=== PATIENT | male | born 1965 ===

== ENCOUNTER 2019-08-12 17:33 | Inpatient (IN) | payer OTHER ==
[~2019-08-12 17:33] MED LIST: Iopamidol-370 76% 500 ML 1 ML ONE
[2019-08-12] MEDS ORDERED: Piperacillin/Tazobactam 4.5 GM VIAL ONE (19:32)
[2019-08-12] MEDS ORDERED: Morphine 4 MG/ML VIAL ONE ×2 (19:32→22:23)
[2019-08-12 19:46] LABS: Hemoglobin 11.9 g/dL (14.0-18.0); Mean Corpuscular HGB CONC 34.1 g/dL (32.0-36.0); Mean Corpuscular Hemoglobin 30.1 pg (27.0-31.0); Mean Corpuscular Volume 88.4 fL (78.0-98.0); Mean Platelet Volume 6.8 fL (7.4-10.4); Platelet Count 249 thou/uL (130-400); RBC Distribution Width 12.6 % (11.5-14.5); Red Blood Cell (RBC) Count 3.95 mill/uL (4.70-6.10); White Blood Cell (WBC) Count 15.8 thou/uL (4.8-10.8)
[2019-08-12 20:01] LABS: Band 21 % (5-11); Lymphocytes 4 % (21-51); MDiff Complete? YES; Monocytes 6 % (0-10); Neutrophil 67 % (42-75); Platelet Morphology Comment Appears Adequate; Polychromasia SLIGHT = 2-3 cells (100X) (0-2/hpf); Reactive Lymphocytes 2 % (0-10)
[2019-08-12] MEDS ORDERED: Acetaminophen 500 MG TAB ONE (20:01)
[2019-08-12 20:06] LABS: ALT (SGPT) 28 U/L (8-55); AST (SGOT) 50 U/L (5-34); Albumin 4.1 g/dL (3.5-5.0); Alkaline Phosphatase 69 U/L (40-110); Anion Gap 14 mmol/L (10-20); BUN (Urea Nitrogen) 13 mg/dL (8.4-25.7); Bilirubin, Total 0.6 mg/dL (0.2-1.2); Calc. Creatinine Clearance 0 mL/min (70-130); Calcium 9.5 mg/dL (7.8-10.44); Carbon Dioxide 25 mmol/L (22-29); Chloride 102 mmol/L (98-107); Estimated GFR-MDRD 85; Globulin 3.1 g/dL (2.4-3.5); Glucose 97 mg/dL (70-105); Potassium 3.9 mmol/L (3.5-5.1); Protein, Total 7.2 g/dL (6.0-8.3); Sodium 137 mmol/L (136-145)
[2019-08-12] MEDS ORDERED: Ibuprofen 800 MG TAB ONE (20:47)
--- NOTE | 2019-08-12 21:31 | CT ---
CT pelvis with IV contrast HISTORY: Scrotal pain and swelling. FINDINGS: Urinary bladder is unremarkable. Prominent degenerative changes of the lower lumbar spine. Minimal if any fluid within the scrotum. Significant edema and thickening of the scrotal scan, more o n the left than the right. Within the posterior aspect of the left scrotal base, a 0.4 cm gas pocket is surrounded by fluid density. IMPRESSION: Prominent scrotal skin thickening with small abscess at the posterior aspect of the left side of the scrotum within the skin. No significant internal abnormalities are suspected.
[2019-08-12 21:59] LABS: Bilirubin Negative (Negative); Blood, Urine Negative (Negative); Clarity Clear (Clear); Glucose, Urine (Dipstick) Normal (Negative); Leukocyte Negative Leu/uL (Negative); Nitrite Negative (Negative); Protein, Urine (Dipstick) 20 mg/dL (Neg-Trace); Urobilinogen Normal mg/dL (Less than 2)
[2019-08-12] MEDS ORDERED: Sodium Chloride 0.9% 1,000 ML IV SCH (23:12)
[2019-08-12] MEDS ORDERED: Ondansetron ODT 4 MG TAB SL PRN (23:12)
[2019-08-12] MEDS ORDERED: Ondansetron PF 4 MG/2 ML Vial IVP PRN ×2 (23:12→23:58)
[2019-08-12] MEDS ORDERED: Morphine 4 MG/ML VIAL SLOW IVP PRN (23:13)
[2019-08-12 23:54] VITALS: BMI 28.8
[2019-08-12] MEDS ORDERED: HumaLOG 300 UNITS/3 ML VIAL SC PRN ×2 (23:58)
[2019-08-12] MEDS ORDERED: Dextrose 50% Abboject 50 ML SYRINGE SLOW IVP PRN (23:58)
[2019-08-12] MEDS ORDERED: Senokot S 8.6-50 MG TAB PO PRN (23:58)
[2019-08-12] MEDS ORDERED: Bisacodyl 10 MG SUPP PR PRN (23:58)
[2019-08-12] MEDS ORDERED: Acetaminophen 325 MG TAB PO PRN (23:58)
[2019-08-12] MEDS ORDERED: Calcium Carbonate 500 MG ChewTAB PO PRN (23:58)
[2019-08-12] MEDS ORDERED: Dextrose 5% in Water 1,000 ML IV PRN (23:58)
[2019-08-12] MEDS ORDERED: Guaifenesin DM 100-10/5 ML UDCUP PO PRN (23:58)
--- NOTE | 2019-08-13 00:21 | HP ---
REASON FOR ADMISSION: Scrotal abscess with cellulitis. HISTORY OF PRESENTING ILLNESS: The patient gives history of noticing a lump on the left side of his scrotum on Thursday. On Thursday and Thursday, it got harder and bigger. He says it was the size of 2 to 3 grapes. From yesterday, it started to swell up and started to hurt him. Finally, [facility] He has been in the nursing home for last 2 years. No prior similar history. He has had prior history of staph infection in his right leg. This was more than 10 years back. Had a temperature of 100.3 degrees in the ER. PAST MEDICAL AND SURGICAL HISTORY: Hypertension, dyslipidemia, diabetes mellitus type 2, atopic dermatitis, GERD, staph infection in the right leg with prior surgery, tonsillectomy. CURRENT MEDICATIONS: The patient is on: 1. Lisinopril 5 mg daily. 2. Metformin 1000 mg twice daily. 3. Aspirin 81 mg daily. ALLERGIES: NO KNOWN DRUG ALLERGIES. PERSONAL HISTORY: Does not abuse alcohol or drugs. No history of smoking. He is currently in nursing home. FAMILY HISTORY: No history of early premature cardiac disease. REVIEW OF SYSTEMS: CONSTITUTIONAL: Negative for weight loss or gain, ability to conduct usual activities. SKIN: Negative for rash, itching. EYES: Negative for double vision, pain. ENT/MOUTH: Negative for nose bleeding, neck stiffness, pain, tenderness. CARDIOVASCULAR: Negative for palpitations, dyspnea on exertion, orthopnea. RESPIRATORY: Negative for shortness of breath, wheezing, cough, hemoptysis, fever or night sweats. GASTROINTESTINAL: Negative for poor appetite, abdominal pain, heartburn, nausea , vomiting, constipation, or diarrhea. GENITOURINARY: Negative for urgency, frequency, dysuria, nocturia. MUSCULOSKELETAL: Negative for pain, swelling. NEUROLOGIC/PSYCHIATRIC: Negative for anxiety, depression. ALLERGY/IMMUNOLOGIC: Negative for skin rash, bleeding tendency. CODE STATUS: Full. PHYSICAL EXAMINATION: GENERAL: The patient is a 53-year-old male, who is currently not in any acute distress. VITAL SIGNS: Blood pressure 160/84, pulse 100 per minute, respiratory rate 16 per minute, temperature 100.3 degrees Fahrenheit, saturating 99% on room air. NECK: Supple. No elevated JVD. HEENT: Eyes; extraocular muscles intact. Pupils reacting to light. Oral cavity, mucous membranes are moist. No exudates or congestion. CARDIOVASCULAR SYSTEM: S1 and S2 heard. Regular rhythm. RESPIRATORY SYSTEM: Air entry 1+ bilateral. No rales or rhonchi. ABDOMEN: Soft. Bowel sounds heard. No tenderness, rigidity, or guarding. SCROTUM: The patient has indurated abscess on the left at the base of his scrotum. There is edema, erythema, and seropurulent discharge. EXTREMITIES: No peripheral edema or calf tenderness. VASCULAR SYSTEM: Peripheral pulses 2+ bilateral. No ischemic ulcerations or gangrene. CENTRAL NERVOUS SYSTEM: No gross focal deficits noted. The patient is alert, awake, and oriented well. PSYCHIATRIC: The patient's mood is euthymic. No hallucinations or delusions. LABORATORY DATA: CT pelvis with contrast done showed prominent scrotal skin thickening with small abscess at the posterior aspect of the left side of the scrotum within the skin. No significant internal abnormalities were suspected. UA shows no sign of infection. BUN 13, creatinine 0.9, lactic acid 2.4, AST 50, ALT 28, albumin 4.1. White count of 15, H and H are 11 and 34, platelet count 249 with 67% neutrophils and 21% bands. Serum glucose was 97. CLINICAL IMPRESSION AND PLAN: The patient will be admitted to medical floor for scrotal abscess on the left side with cellulitis. Dr. Gonzales has been consulted from ER. We will keep him n.p.o. if he needs debridement in the morning. He will be on vancomycin and Zosyn. Normal saline at 100 mL per hour. Morphine p.r.n. for pain. We will continue his lisinopril 5 mg daily. Metformin will be held for now. We will continue to closely monitor him on medical floor. Job ID: [id number] [facility]
[2019-08-13] MEDS: Sodium Chloride 0.9% 1,000 ML IV SCH ×3 (01:05→22:05)
[2019-08-13] MEDS ORDERED: Piperacillin/Tazobactam 4.5 GM in Sodium Chloride 0.9% 100 ML IVPB SCH (02:00)
[2019-08-13] MEDS: Piperacillin/Tazobactam 3.375 GM in Sodium Chloride 0.9% 100 ML IVPB SCH ×4 (02:20→19:50)
[2019-08-13] MEDS: Morphine 4 MG/ML VIAL SLOW IVP PRN ×4 (02:23→23:27)
[2019-08-13] MEDS: Vancomycin HCl 1.25 GM in Sodium Chloride 0.9% 250 ML 250 ML IVPB SCH ×3 (04:25→22:02)
[2019-08-13 06:51] LABS: #Eosinphils 0.1 thou/uL (0.0-0.7); #Lymphocytes 0.7 thou/uL (1.20-3.40); #Monocytes 0.7 thou/uL (0.11-0.59); #Neutrophils 9.9 thou/uL (1.40-6.50); %Basophils 0.1 % (0.0-1.0); %Eosinophils 1.2 % (0.0-10.0); %Lymphocytes 6.3 % (21.0-51.0); %Monocytes 5.9 % (0.0-10.0); %Neutrophils 86.4 % (42.0-75.0); Hemoglobin 11.1 g/dL (14.0-18.0); Mean Corpuscular HGB CONC 33.9 g/dL (32.0-36.0); Mean Corpuscular Volume 88.6 fL (78.0-98.0); Mean Platelet Volume 6.7 fL (7.4-10.4); Platelet Count 238 thou/uL (130-400); RBC Distribution Width 12.8 % (11.5-14.5); Red Blood Cell (RBC) Count 3.71 mill/uL (4.70-6.10); White Blood Cell (WBC) Count 11.4 thou/uL (4.8-10.8)
[2019-08-13 07:20] LABS: Anion Gap 10 mmol/L (10-20); BUN (Urea Nitrogen) 13 mg/dL (8.4-25.7); Calc. Creatinine Clearance 127 mL/min (70-130); Calcium 8.7 mg/dL (7.8-10.44); Carbon Dioxide 26 mmol/L (22-29); Chloride 108 mmol/L (98-107); Estimated GFR-MDRD 83; Glucose 161 mg/dL (70-105); Potassium 4.1 mmol/L (3.5-5.1); Sodium 140 mmol/L (136-145)
[2019-08-13] MEDS: Famotidine 20 MG TAB PO SCH ×2 (08:11→19:50)
[2019-08-13] MEDS: Lisinopril 5 MG TAB PO SCH (08:11)
[2019-08-13] MEDS: Enoxaparin Sodium 40 MG/0.4 ML SYRINGE SC SCH ×2 (08:12→08:21)
--- NOTE | 2019-08-13 13:40 | CON ---
DATE OF CONSULTATION: 08/13/2019 CONSULTING PHYSICIAN: Emergency room. REASON FOR CONSULTATION: Scrotal abscess and cellulitis. HISTORY OF PRESENT ILLNESS: Mr. Mosher is a 53-year-old white male who is currently incarcerated and has a history of diabetes, who came in with a several-day history of a worsening boil on his posterior scrotum. He stated that it started out as what looked like a pimple and then progressively got worse to the point he started having swelling and significant pain and tenderness, swelling not just on the scrotum, but behind the scrotum itself. He did not report any pain with urination, hematuria, difficulty urinating, or malodorous urine. When he began having fevers, he was treated initially by the skilled nursing facility with antibiotics, but failed to respond and transferred over to the emergency room where he was evaluated. Here, the emergency room team felt that he may have a possible posterior scrotal abscess and did lucita an area that appeared to be pustular. There was a very small and scant amount of fluid drained out at that time and it did not appear that there was any tracking or significant fluid collection from the small incision that was made on his posterior scrotum to perineal area. I was consulted then for further assistance on his perineum and scrotal infection. I did request a pelvic CT be done, which was completed and demonstrated no significant intrapelvic abscess, perineal abscess, or subcutaneous emphysema. On my discussion with the patient today, he states he is feeling better on the antibiotics. He has less malaise and apparently his fevers have stopped. He is still having a lot of pain and discomfort down in the perineal and scrotal area, although it is improved from yesterday. He states he has never had anything like this before, although he does state that several other inmates have had similar-type infections, not to the severity that he has had, that had also failed oral antibiotic therapy in the skilled nursing system. Of note, the patient's blood sugar levels were 97 when he came into the ER yesterday. ALLERGIES: NONE. HOME MEDICATIONS: 1. Lisinopril 5 mg daily. 2. Metformin 1000 mg b.i.d. 3. Aspirin 81 mg daily. PAST MEDICAL HISTORY: 1. Hypertension. 2. Dyslipidemia. 3. Diabetes mellitus, type 2. 4. Atopic dermatitis. 5. Gastroesophageal reflux disease. 6. History of staph infection in the right leg with prior surgery. 7. Tonsillectomy. PAST SURGICAL HISTORY: Right leg debridement. FAMILY HISTORY: Significant only for cardiac disease, but no other concerning urologic findings. SOCIAL HISTORY: The patient is currently incarcerated. He states he is not using any alcohol or drugs and has no history of smoking. REVIEW OF SYSTEMS: A 12-point review of system was reviewed and negative other than what was commented on the HPI, specifically related to his prior malaise, fevers, and scrotal and perineal pain which as stated above has now improved. PHYSICAL EXAMINATION: VITAL SIGNS: Temperature 98.1, pulse 70, respirations 18, blood pressure 124/72, and saturations 97% on room air. GENERAL: No apparent distress. Appears stated age. Communicative and alert. Well nourished, well developed. Answering questions appropriately. HEENT: Normocephalic and atraumatic. Pupils are symmetric and round. Sclerae nonicteric. Trachea midline. Moist mucous membranes. CARDIOVASCULAR: Regular rate and rhythm. Normal S1 and S2. Symmetric pulses. CHEST: No increased work of breathing. Symmetric expansion of lungs. Clear anteriorly. ABDOMEN: Soft, nontender, and nondistended. Positive bowel sounds. No organomegaly or hernias noted. No rebound or guarding. GENITOURINARY: Penis is nonfocal. There is no redness or erythema or induration. Nontender. Meatus is patent and in normal location. Scrotum is erythematous and somewhat edematous. The posterior scrotum does have induration, but no crepitus. The testicles are palpable in the scrotal sac and are nontender. There is significant induration of the skin on the left lateral aspect of the inguinal canal with associated mild lymphadenopathy in the left inguinal chain. The perineum is severely indurated and tender to touch, which tracks to the scrotum on the left side. There is a small incision, which has some purulent material and fibrinous material around it, which is probably consistent with the patient's prior I and D done in the emergency room. Palpation of this area does not demonstrate any crepitus or fluctuance. The tissues are hard, but do corine and have good capillary refill, indicating viability. RECTAL: Deferred at this time. EXTREMITIES: No clubbing, cyanosis, or edema. MUSCULOSKELETAL: No joint deformities or joint erythema noted. Full range of motion. SKIN: Warm and dry. No rashes or lesions. Good turgor except for previously noted skin changes in the genitourinary region. NEUROLOGIC: Cranial nerves 2 through 12 appear grossly intact. No focal or sensory motor deficits identified. PSYCHIATRIC: Alert and oriented x3. Appropriate mood and affect. LABORATORY EVALUATION: The full set of labs are in the [employer] system, which I have reviewed. Of note, the patient's white count is currently 11.4 down from 15.8, platelet count of 238, and hemoglobin of 11.1. Creatinine is currently 0.96 and glucose today is 161. Lactic acid has decreased from 2.4 down to 2. Blood cultures have been negative thus far and are proceeding. CT of the pelvis done yesterday demonstrates prominent scrotal thickening with small abscess at the posterior aspect of the left side of the scrotum within the skin. There is no significant internal abnormality suspected. The only gas pocket noted is in the location of the prior I and D, which was made by the emergency room team. ASSESSMENT AND PLAN: A 53-year-old white male with diabetes with fairly significant perineal cellulitis which has extended up onto the base of the scrotum as well as in the left inguinal region. There is currently no evidence of Wilbert gangrene as the tissues all appear viable. There are no significant gas pocket formations. The patient has a decreasing white count and decreasing lactate levels and clinical improvement. At the current time, there is no strong indication for extensive or wide debridement, which is extremely morbid. The patient should have further improvement with tight glycemic control and appropriate antibiotic therapy. Would recommend continuation of IV antibiotics at the current time until cultures can be finalized. If no cultures were taken during the I and D, then I would treat for MRSA staph type infection or double cover with Bactrim and some type of skin coverage, such as amoxicillin, Augmentin, or Keflex. I will continue to follow and I would recommend that he stay in the hospital until cultures are finalized. The patient has shown a moderate level of clinical improvement. I will continue to monitor to ensure that he does not have any progression towards Wilbert gangrene. The patient does not need to be kept n.p.o. and can use a diabetic diet, but blood sugar control be imperative for proper resolution of this infection. Job ID: [id number]
[2019-08-13] MEDS: HYDROcodone/Acetaminophen 5/325 mg Tablet PO PRN ×2 (13:56→17:53)
--- NOTE | 2019-08-13 18:06 | PDOC.HOSPP ---
- Subjective Encounter Date: 08/13/19 Encounter Time: 09:00 Subjective: Pt seen for followup re: scrotal cellulitis. Feels slightly better. - Objective Vital Signs & Weight: Vital Signs (12 hours) Temp Pulse Resp BP BP Pulse Ox 08/13/19 16:59 98.5 F 84 20 118/68 93 L 08/13/19 12:00 98.8 F 88 20 145/75 H 95 08/13/19 08:11 70 124/72 08/13/19 08:00 98.1 F 79 18 124/72 97 Weight Weight 218 lb 4.122 oz I&O: 08/12/19 08/13/19 08/14/19 06:59 06:59 06:59 Intake Total 1314 Output Total 0 Balance 1314 Result Diagrams: 08/13/19 06:31 08/13/19 06:31 Additional Labs: Accuchecks 08/13/19 08/13/19 08/13/19 16:29 11:58 05:52 POC Glucose 123 H 94 166 H Labs and MARs reviewed by nj Hospitalist ROS - Review of Systems Constitutional: denies: fever, chills, sweats, weakness, malaise Respiratory: denies: cough, shortness of breath, SOB with excertion, pleuritic pain, wheezing Cardiovascular: denies: chest pain, palpitations, orthopnea, paroxysmal noc. dyspnea, edema, light headedness Gastrointestinal: denies: nausea, vomiting, abdominal pain, diarrhea, constipation, melena, hematochezia Genitourinary: reports: other (scrotal pain and swelling). denies: dysuria, frequency, incontinence, hematuria, retention Musculoskeletal: denies: neck pain, shoulder pain, arm pain, back pain, hand pain, leg pain, foot pain - Medication Medications: Active Medications Generic Name Dose Route Start Last Admin Trade Name Freq PRN Reason Stop Dose Admin Hydrocodone Bitart/Acetaminophen 1 tab 08/12/19 23:58 08/13/19 17:53 [place] 5/325 PO 1 tab Q4H PRN Administration Moderate Pain (4-6) Enoxaparin Sodium 40 mg 08/13/19 09:00 08/13/19 08:21 Lovenox SC Not Given 0900 FAUSTO Famotidine 20 mg 08/13/19 09:00 08/13/19 08:11 Pepcid PO 20 mg BID FAUSTO Administration Sodium Chloride 1,000 mls @ 100 mls/hr 08/12/19 23:58 08/13/19 04:24 Normal Saline 0.9% IV 1,000 mls .Q10H FAUSTO Administration Piperacillin Sod/Tazobactam 100 mls @ 200 mls/hr 08/13/19 02:00 08/13/19 13: 53 Sod 3.375 gm/ Sodium Chloride IVPB 100 mls 0200,0800,1400,2000 FAUSTO Administration Vancomycin HCl 1.25 gm/ Sodium 250 mls @ 250 mls/hr 08/13/19 06:00 08/13/19 15:12 Chloride IVPB 250 mls Q8HR FAUSOT Administration Lisinopril 5 mg 08/13/19 09:00 08/13/19 08:11 Zestril PO 5 mg DAILY FAUSTO Administration Morphine Sulfate 4 mg 08/12/19 23:58 08/13/19 13:55 Morphine SLOW IVP 4 mg Q4H PRN Administration Severe Pain (7-10) Sodium Chloride 10 ml 08/13/19 09:00 08/13/19 08:12 Flush - Normal Saline IVF 10 ml Q12HR FAUSTO Administration - Exam General Appearance: awake alert Eye: anicteric sclera ENT: moist mucosa Neck: supple, symmetric, no thyromegaly, no lymphadenopathy Heart: RRR, no gallops, no rubs, normal peripheral pulses Respiratory: CTAB, no wheezes, no rales, no ronchi, normal chest expansion Gastrointestinal: soft, non-tender, non-distended, normal bowel sounds Skin - other findings: scrotal erythema, tenderness, warm to touch Psychiatric: normal affect, normal behavior Hosp A/P (1) Cellulitis of scrotum Code(s): N49.2 - INFLAMMATORY DISORDERS OF SCROTUM Status: Acute (2) Scrotal abscess Code(s): N49.2 - INFLAMMATORY DISORDERS OF SCROTUM Status: Acute (3) DM2 (diabetes mellitus, type 2) Status: Chronic (4) HTN (hypertension) Code(s): I10 - ESSENTIAL (PRIMARY) HYPERTENSION Status: Chronic (5) GERD (gastroesophageal reflux disease) Code(s): K21.9 - GASTRO-ESOPHAGEAL REFLUX DISEASE WITHOUT ESOPHAGITIS Status: Chronic - Plan reasonable control of blood sugars. Continue IV Zosyn and IV vancomycin. HTN controlled. GERD stable.
[2019-08-13 21:32] LABS: Vancomycin, Trough 16.9 ug/mL
[2019-08-14] MEDS: Piperacillin/Tazobactam 3.375 GM in Sodium Chloride 0.9% 100 ML IVPB SCH ×5 (02:06→20:46)
[2019-08-14] MEDS: Sodium Chloride 0.9% 1,000 ML IV SCH ×2 (02:14→20:48)
[2019-08-14] MEDS: Vancomycin HCl 1.25 GM in Sodium Chloride 0.9% 250 ML 250 ML IVPB SCH ×3 (07:54→21:53)
[2019-08-14] MEDS: Famotidine 20 MG TAB PO SCH ×2 (09:14→20:47)
[2019-08-14] MEDS: Lisinopril 5 MG TAB PO SCH (09:14)
[2019-08-14] MEDS: Enoxaparin Sodium 40 MG/0.4 ML SYRINGE SC SCH (09:15)
--- NOTE | 2019-08-14 11:54 | PRG ---
DATE OF SERVICE: 08/14/2019 SUBJECTIVE: The patient states he is feeling fine today. He is about in the same level of pain as yesterday, which is about 3/10. It is worse with movement. He has not had any fevers. OBJECTIVE: VITAL SIGNS: Temperature 98, pulse 73, respirations 16, blood pressure 160/84, saturation 96% on room air. GENERAL: In no apparent distress, communicative, alert. CARDIOVASCULAR: Regular rate and rhythm. ABDOMEN: Soft, nontender, nondistended. Positive bowel sounds. : Penis is nonfocal. No lesions or edema. Scrotum shows less erythema than yesterday. It is still edematous, especially on the posterior aspect. There is still induration of the tissues along the left side of the scrotum extending onto the perineum where the previously mentioned cellulitis is. The amount of erythema has dramatically reduced since yesterday, although the induration persists. There is still a purulent eschar present at the site of where the previous I and D was. Compression on this area does result in expression of purulent material. EXTREMITIES: No edema. LABORATORY EVALUATION: There are no new labs to review today other than blood sugar, which is currently 117. ASSESSMENT AND PLAN: A 53-year-old white male with perineal and scrotal cellulitis, currently on antibiotic therapy with a small I and D without any actual abscess cavity found. There is purulent material draining out from this eschar site. I would recommend topical wound care and I do think it would be ideal for Wound Care to come see the patient to address on whether a silver-coated dressing or honey-based dressing may be beneficial for topical treatment of this purulent discharge, but more importantly IV antibiotics will be critical for resolution of this infection. I would recommend continued IV antibiotics until the patient shows further clinical resolution. At that point, I do think he can transition to oral antibiotic therapy. At the current time, cultures still have not grown anything. Urine culture is currently negative, which is probably not going to show anything as I do not think this stemmed from a urinary infection. Again, if the patient has no cultures from the area of infection, then treatment with Bactrim and skin coverage such as Augmentin, amoxicillin, or Keflex would probably be beneficial for treatment of superficial skin bacteria and methicillin-resistant Staphylococcus aureus. I will continue to follow along and make recommendations. Job ID: [id number]
[2019-08-14 12:46] LABS: #Eosinphils 0.1 thou/uL (0.0-0.7); #Lymphocytes 1.2 thou/uL (1.20-3.40); #Monocytes 0.5 thou/uL (0.11-0.59); #Neutrophils 5.8 thou/uL (1.40-6.50); %Basophils 0.2 % (0.0-1.0); %Eosinophils 1.8 % (0.0-10.0); %Lymphocytes 15.6 % (21.0-51.0); %Monocytes 6.9 % (0.0-10.0); %Neutrophils 75.5 % (42.0-75.0); Hemoglobin 10.9 g/dL (14.0-18.0); Mean Corpuscular HGB CONC 34.1 g/dL (32.0-36.0); Mean Corpuscular Hemoglobin 30.5 pg (27.0-31.0); Mean Corpuscular Volume 89.4 fL (78.0-98.0); Mean Platelet Volume 6.4 fL (7.4-10.4); Platelet Count 274 thou/uL (130-400); RBC Distribution Width 12.7 % (11.5-14.5); Red Blood Cell (RBC) Count 3.59 mill/uL (4.70-6.10); White Blood Cell (WBC) Count 7.6 thou/uL (4.8-10.8)
--- NOTE | 2019-08-14 14:37 | PDOC.HOSPP ---
- Subjective Encounter Date: 08/14/19 Encounter Time: 08:20 Subjective: Pt seen for followup re: scrotal cellulitis. Feels better. - Objective Vital Signs & Weight: Vital Signs (12 hours) Temp Pulse Resp BP BP Pulse Ox 08/14/19 11:19 98.0 F 73 16 160/84 H 96 08/14/19 09:14 80 148/79 H 08/14/19 08:00 93 L 08/14/19 07:48 98.0 F 80 16 148/79 H 93 L 08/14/19 05:27 97.9 F 82 18 141/74 H 95 Weight Weight 218 lb 4.122 oz I&O: 08/13/19 08/14/19 08/15/19 06:59 06:59 06:59 Intake Total 1314 1780 Output Total 0 Balance 1314 1780 Result Diagrams: 08/14/19 12:36 08/13/19 06:31 Additional Labs: Accuchecks 08/14/19 08/14/19 08/13/19 11:25 05:26 21:51 POC Glucose 117 H 116 H 168 H 08/13/19 16:29 POC Glucose 123 H Labs and MARs reviewed by ia Hospitalist ROS - Review of Systems Constitutional: denies: fever, chills, sweats, weakness, malaise Cardiovascular: denies: chest pain, palpitations, orthopnea, paroxysmal noc. dyspnea, edema, light headedness Gastrointestinal: denies: nausea, vomiting, abdominal pain, diarrhea, constipation, melena, hematochezia Genitourinary: denies: dysuria, frequency, incontinence, hematuria, retention Musculoskeletal: denies: neck pain, shoulder pain, arm pain, back pain, hand pain, leg pain, foot pain - Medication Medications: Active Medications Generic Name Dose Route Start Last Admin Trade Name Freq PRN Reason Stop Dose Admin Hydrocodone Bitart/Acetaminophen 1 tab 08/12/19 23:58 08/13/19 17:53 [place] 5/325 PO 1 tab Q4H PRN Administration Moderate Pain (4-6) Enoxaparin Sodium 40 mg 08/13/19 09:00 08/14/19 09:15 Lovenox SC 40 mg 0900 FAUSTO Administration Famotidine 20 mg 08/13/19 09:00 08/14/19 09:14 Pepcid PO 20 mg BID FAUSTO Administration Sodium Chloride 1,000 mls @ 100 mls/hr 08/12/19 23:58 08/14/19 02:14 Normal Saline 0.9% IV 1,000 mls .Q10H AFUSTO Administration Vancomycin HCl 1.25 gm/ Sodium 250 mls @ 250 mls/hr 08/13/19 06:00 08/14/19 07:54 Chloride IVPB 250 mls Q8HR FAUSTO Administration Piperacillin Sod/Tazobactam 100 mls @ 200 mls/hr 08/14/19 10:00 08/14/19 10: 10 Sod 3.375 gm/ Sodium Chloride IVPB 100 mls 0400,1000,1600,2200 FAUSTO Administration Lisinopril 5 mg 08/13/19 09:00 08/14/19 09:14 Zestril PO 5 mg DAILY FAUSTO Administration Morphine Sulfate 4 mg 08/12/19 23:58 08/13/19 23:27 Morphine SLOW IVP 4 mg Q4H PRN Administration Severe Pain (7-10) Sodium Chloride 10 ml 08/13/19 09:00 08/14/19 14:30 Flush - Normal Saline IVF Not Given Q12HR FAUSTO - Exam General Appearance: awake alert Eye: PERRL ENT: moist mucosa Neck: supple, symmetric, no JVD, no thyromegaly Heart: RRR, no murmur, no gallops, no rubs Respiratory: CTAB, no wheezes, no rales, no ronchi, normal chest expansion Gastrointestinal: soft, non-tender, non-distended, normal bowel sounds Psychiatric: normal affect, normal behavior, A&O x 3 Hosp A/P (1) Cellulitis of scrotum Code(s): N49.2 - INFLAMMATORY DISORDERS OF SCROTUM Status: Acute (2) Scrotal abscess Code(s): N49.2 - INFLAMMATORY DISORDERS OF SCROTUM Status: Acute (3) DM2 (diabetes mellitus, type 2) Status: Chronic (4) HTN (hypertension) Code(s): I10 - ESSENTIAL (PRIMARY) HYPERTENSION Status: Chronic (5) GERD (gastroesophageal reflux disease) Code(s): K21.9 - GASTRO-ESOPHAGEAL REFLUX DISEASE WITHOUT ESOPHAGITIS Status: Chronic - Plan Continuie accuchecks and insulin sliding scale. Continue IV Zosyn and IV vancomycin, follow cultures. HTN controlled. GERD stable.
[2019-08-14] MEDS: HYDROcodone/Acetaminophen 5/325 mg Tablet PO PRN ×2 (15:03→20:47)
[2019-08-15] MEDS: Piperacillin/Tazobactam 3.375 GM in Sodium Chloride 0.9% 100 ML IVPB SCH ×3 (04:31→15:22)
[2019-08-15] MEDS: Sodium Chloride 0.9% 1,000 ML IV SCH ×3 (04:32→23:25)
[2019-08-15] MEDS: Vancomycin HCl 1.25 GM in Sodium Chloride 0.9% 250 ML 250 ML IVPB SCH ×3 (06:02→17:33)
[2019-08-15] MEDS: HYDROcodone/Acetaminophen 5/325 mg Tablet PO PRN ×4 (06:02→20:24)
[2019-08-15] MEDS: Enoxaparin Sodium 40 MG/0.4 ML SYRINGE SC SCH (11:11)
[2019-08-15] MEDS: Lisinopril 5 MG TAB PO SCH (11:15)
[2019-08-15] MEDS: Famotidine 20 MG TAB PO SCH ×2 (11:15→20:25)
--- NOTE | 2019-08-15 12:38 | PDOC.HOSPP ---
- Subjective Encounter Date: 08/15/19 Encounter Time: 08:20 Subjective: Pt seen for followup re:scrotal cellulitis. feels better. - Objective Vital Signs & Weight: Vital Signs (12 hours) Temp Pulse Resp BP Pulse Ox 08/15/19 11:15 75 08/15/19 11:05 98.0 F 62 16 176/85 H 96 08/15/19 07:55 98.1 F 63 16 152/84 H 96 08/15/19 03:25 98.2 F 75 16 164/86 H 92 L Weight Weight 218 lb 4.122 oz I&O: 08/14/19 08/15/19 08/16/19 06:59 06:59 06:59 Intake Total 1780 1650 Balance 1780 1650 Result Diagrams: 08/14/19 12:36 08/13/19 06:31 Additional Labs: Accuchecks 08/15/19 08/14/19 08/14/19 05:34 19:53 15:57 POC Glucose 108 157 H 185 H Labs and MARs reviewed by wi Hospitalist ROS - Review of Systems Cardiovascular: denies: chest pain, palpitations, orthopnea, paroxysmal noc. dyspnea, edema, light headedness Gastrointestinal: denies: nausea, vomiting, abdominal pain, diarrhea, constipation, melena, hematochezia - Medication Medications: Active Medications Generic Name Dose Route Start Last Admin Trade Name Freq PRN Reason Stop Dose Admin Hydrocodone Bitart/Acetaminophen 1 tab 08/12/19 23:58 08/15/19 11:15 [place] 5/325 PO 1 tab Q4H PRN Administration Moderate Pain (4-6) Enoxaparin Sodium 40 mg 08/13/19 09:00 08/15/19 11:11 Lovenox SC 40 mg 0900 FAUSTO Administration Famotidine 20 mg 08/13/19 09:00 08/15/19 11:15 Pepcid PO 20 mg BID FAUSTO Administration Sodium Chloride 1,000 mls @ 100 mls/hr 08/12/19 23:58 08/15/19 11:18 Normal Saline 0.9% IV 1,000 mls .Q10H FAUSTO Administration Vancomycin HCl 1.25 gm/ Sodium 250 mls @ 250 mls/hr 08/13/19 06:00 08/15/19 06:02 Chloride IVPB 250 mls Q8HR FAUSTO Administration Piperacillin Sod/Tazobactam 100 mls @ 200 mls/hr 08/14/19 10:00 08/15/19 11: 18 Sod 3.375 gm/ Sodium Chloride IVPB 100 mls 0400,1000,1600,2200 FAUSTO Administration Lisinopril 5 mg 08/13/19 09:00 08/15/19 11:15 Zestril PO 5 mg DAILY FAUSTO Administration Morphine Sulfate 4 mg 08/12/19 23:58 08/13/19 23:27 Morphine SLOW IVP 4 mg Q4H PRN Administration Severe Pain (7-10) Sodium Chloride 10 ml 08/13/19 09:00 08/15/19 11:18 Flush - Normal Saline IVF 10 ml Q12HR FAUSTO Administration - Exam General Appearance: awake alert Eye: anicteric sclera ENT: moist mucosa Neck: supple Heart: RRR, no rubs Respiratory: CTAB Gastrointestinal: soft, non-tender Gastrointestinal - other findings: scrotal cellulitis Psychiatric: normal affect, normal behavior Hosp A/P (1) Cellulitis of scrotum Code(s): N49.2 - INFLAMMATORY DISORDERS OF SCROTUM Status: Acute (2) DM2 (diabetes mellitus, type 2) Status: Chronic (3) HTN (hypertension) Code(s): I10 - ESSENTIAL (PRIMARY) HYPERTENSION Status: Chronic (4) GERD (gastroesophageal reflux disease) Code(s): K21.9 - GASTRO-ESOPHAGEAL REFLUX DISEASE WITHOUT ESOPHAGITIS Status: Chronic - Plan Continuie accuchecks and insulin moderate sliding scale. Blood sugars high at times but most of the readings are reasonable. Continue IV Zosyn and IV vancomycin, cultures negative so far. HTN controlled. GERD stable.
[2019-08-15 13:42] LABS: Vancomycin, Trough 20.5 ug/mL
[2019-08-15] MEDS ORDERED: Vancomycin HCl 1 GM in Premix Bag 1 BAG IVPB SCH ×2 (16:00→22:15)
--- NOTE | 2019-08-15 20:05 | PRG ---
DATE OF SERVICE: 08/15/2019 SUBJECTIVE: The patient states he is feeling better today. He has 4/10 pain. It is improving overall. He is still sensitive with swelling and induration, but otherwise states he is doing well. Wound Care did come see him today and has applied honey based dressing. The patient has also taken a shower. He denies any fevers. OBJECTIVE: VITAL SIGNS: Temperature 98.5, pulse 67, respirations 18, blood pressure 169/92, saturation 96% on room air. GENERAL: No apparent distress. Communicative and alert. CARDIOVASCULAR: Regular rate and rhythm. ABDOMEN: Soft, nontender, and nondistended. GENITOURINARY: The patient still has mild edema of the scrotum with mild erythema. The induration on the left inguinal and perineal area has significantly decreased, but continues to be present. There is still a purulent eschar at the site of the previous I and D. No crepitus or evidence of Wilbert gangrene. No subcutaneous fluctuance or evidence of abscess. Overall, clinically looks better than before. EXTREMITIES: No edema. LABORATORY EVALUATION: The full set of labs are in the [employer] system, which I have reviewed. Of note, the patient's white count is 7.6 as of yesterday. There are no new labs today. ASSESSMENT AND PLAN: A 53-year-old white male with perineal and scrotal cellulitis, which has significantly improved on IV antibiotics. I would consider making the transition over to oral antibiotics including coverage for both methicillin-resistant Staphylococcus aureus and methicillin-sensitive Staphylococcus aureus and strep such as a combination of Bactrim with Keflex. Antibiotic treatment should be continued for 2 weeks given the severity of the infection and the patient's diabetes. I gave the patient the option to follow up with me as an outpatient or he can be followed by the halfway physician who can check on his infection and ensure that it is healing appropriately. The patient has elected to have the halfway doctor follow it, which I think is reasonable. Should there be any worsening of his infection, recurrent fevers, worsening pain, redness or swelling, the patient should be transferred back to the hospital for more aggressive treatment, IV antibiotics with or without surgical debridement. I will go ahead and sign off for now. If there are any further concerns, I think the patient can be discharged tomorrow. Please re-consult or call if there are any questions. Job ID: [id number]
[2019-08-15] MEDS ORDERED: Sulfameth/Trimethoprim DS 800-160mg TAB PO SCH (21:00)
[2019-08-15] MEDS ORDERED: Amoxicillin/Potassium Clav 875 MG TAB PO SCH (21:00)
[2019-08-15] MEDS ORDERED: diphenhydrAMINE 50 MG/ML VIAL ONE ×2 (21:49→21:58)
[2019-08-15] MEDS ORDERED: methylPREDNISolone Sod Succ/PF 125 MG/2 ML VIAL IVP SCH (22:00)
[2019-08-15] MEDS ORDERED: diphenhydrAMINE 50 MG/ML VIAL IM SCH (22:00)
[2019-08-15] MEDS ORDERED: Piperacillin/Tazobactam 3.375 GM in Sodium Chloride 0.9% 100 ML IVPB SCH (22:00)
[2019-08-15] MEDS ORDERED: Famotidine/PF 20 mg/2ml Vial SLOW IVP SCH (22:00)
[2019-08-15] MEDS ORDERED: Racepinephrine 2.25% 0.5 ML NEB ONE (22:01)
[2019-08-15] MEDS ORDERED: Bacteriostatic Water 30 ML VIAL FS PRN (22:04)
--- NOTE | 2019-08-15 22:05 | PDOC.EVN ---
Event Note - Event Note Event Note: Code green called - Pt hypoxic in 70s. Feels like his throat is closing. o/e Rep distress, Mild stridor, Coarse BS B/L Labs/CXR pending Will start IV Pepcid/Benadryl/Steroids for posiblle allergic reaction to Augmentin or Sulfa (both are new - first dose tonight) Transfer to [facility] Change Atbx back to IV
[2019-08-15] MEDS ORDERED: Furosemide 40 MG/4 ML VIAL SLOW IVP SCH (22:15)
--- NOTE | 2019-08-15 22:23 | RAD ---
Portable frontal chest radiograph: 08/15/2019 COMPARISON: None available HISTORY: Short of breath FINDINGS: No focal consolidation or alveolar edema. Heart and mediastinal contours appear within norm al limits. Mild increased linear interstitial density noted bilaterally. IMPRESSION: Nonspecific mild interstitial density with no focal consolidation or alveolar edema.
[2019-08-15 22:35] LABS: ALT (SGPT) 28 U/L (8-55); AST (SGOT) 46 U/L (5-34); Albumin 4.1 g/dL (3.5-5.0); Alkaline Phosphatase 164 U/L (40-110); Anion Gap 19 mmol/L (10-20); BUN (Urea Nitrogen) 9 mg/dL (8.4-25.7); Bilirubin, Total 0.3 mg/dL (0.2-1.2); Calc. Creatinine Clearance 119 mL/min (70-130); Calcium 9.5 mg/dL (7.8-10.44); Carbon Dioxide 20 mmol/L (22-29); Chloride 106 mmol/L (98-107); Estimated GFR-MDRD 76; Globulin 3.7 g/dL (2.4-3.5); Glucose 138 mg/dL (70-105); Potassium 3.8 mmol/L (3.5-5.1); Protein, Total 7.8 g/dL (6.0-8.3); Sodium 141 mmol/L (136-145)
[2019-08-15 22:39] LABS: Troponin I 0.025 ng/mL (< 0.028)
[2019-08-15] MEDS ORDERED: MEROPENEM 1 GM/50 ML 1 GM in Premix Bag 1 BAG IVPB SCH (22:45)
[2019-08-15] MEDS: Vancomycin HCl 1 GM in Premix Bag 1 BAG IVPB SCH (23:48)
[2019-08-15] MEDS ORDERED: diphenhydrAMINE 50 MG/ML VIAL IVP SCH (23:59)
[2019-08-16] MEDS ORDERED: methylPREDNISolone Sod Succ 40 MG VIAL IVP SCH (02:00)
[2019-08-16] MEDS: diphenhydrAMINE 50 MG/ML VIAL IVP SCH ×4 (03:34→20:24)
[2019-08-16] MEDS: methylPREDNISolone Sod Succ 40 MG VIAL IVP SCH ×4 (03:35→20:24)
[2019-08-16] MEDS: MEROPENEM 1 GM/50 ML 1 GM in Premix Bag 1 BAG IVPB SCH ×3 (06:29→21:20)
[2019-08-16] MEDS: Enoxaparin Sodium 40 MG/0.4 ML SYRINGE SC SCH (10:04)
[2019-08-16] MEDS: Famotidine 20 MG TAB PO SCH ×2 (10:04→20:24)
[2019-08-16] MEDS: metFORMIN 500 MG TAB PO SCH ×2 (10:04→17:27)
[2019-08-16] MEDS: Lisinopril 5 MG TAB PO SCH (10:05)
[2019-08-16] MEDS: Famotidine/PF 20 mg/2ml Vial SLOW IVP SCH ×2 (10:06→19:23)
[2019-08-16] MEDS: Vancomycin HCl 1 GM in Premix Bag 1 BAG IVPB SCH ×3 (10:56→22:11)
--- NOTE | 2019-08-16 14:15 | PQF ---
CLINICAL DOCUMENTATION IMPROVEMENT CLARIFICATION FORM: ICD-10 Updated PLEASE DO AN ADDENDUM TO THE PROGRESS NOTE WITH ANY DOCUMENTATION UPDATES OR ADDITIONS AND CARRY THROUGH TO DC SUMMARY. THANK YOU. DATE: 08/16/19 ATTN: DR. BECERRA Please exercise your independent, professional judgment in responding to the clarification form. Clinical indicators are provided on the bottom of this form for your review Please check appropriate box(es): [ ] Sepsis due to: (Pna, UTI, gangrenous gall bladder, etc.) [ ] SIRS due to non-infectious process (please specify etiology) [ ] Localized infection without sepsis [ ] Other diagnosis [ ] Unable to determine In addition, please specify: Present on Admission (POA): [ ] Yes [ ] No [ ] Unable to determine For continuity of documentation, please document condition throughout progress notes and discharge summary. Thank You. CLINICAL INDICATORS - SIGNS / SYMPTOMS / LABS / RESULTS AND LOCATION IN MR ER NOTE: PULSE 107 RR 22 TEMP 102.3 WBC 08/12: 15.8 BANDS 21 LACTIC ACID 08/12: 2.4 RISKS: H/O DIABETES SCROTAL CELLULITIS (H&P 08/13) TREATMENT: IV FLUIDS (ER) IV VANCOMYCIN (ER-PRESENT) IV ZOSYN (ER) IV MERREM (STARTED 08/16) BLOOD AND URINE CULTURES (08/12) (This form is maintained as a part of the permanent medical record) 2014 [employer]. All Rights Reserved [email or web address] Office: [phone] [facility]
--- NOTE | 2019-08-16 14:27 | PQF ---
CLINICAL DOCUMENTATION IMPROVEMENT CLARIFICATION FORM: ICD-10 Updated PLEASE DO AN ADDENDUM TO THE PROGRESS NOTE WITH ANY DOCUMENTATION UPDATES OR ADDITIONS AND CARRY THROUGH TO DC SUMMARY. THANK YOU. DATE: 08/16/19 ATTN: DR. BECERRA Please exercise your independent, professional judgment in responding to the clarification form. Clinical indicators are provided on the bottom of this form for your review Please check appropriate box(s): [ ] Acute Respiratory Failure: [ ] with Hypoxia[ ] with Hypercapnia [ ] Acute On Chronic Respiratory Failure: [ ] with Hypoxia [ ] with Hypercapnia [ ] Acute Respiratory Failure due to: (etiology) [ ] ARDS (Acute Respiratory Distress Syndrome) [ ] Hypoxia [ ] Other diagnosis [ ] Unable to determine In addition, please specify: Present on Admission (POA): [ ] Yes [ ] No [ ] Unable to determine For continuity of documentation, please document condition throughout progress notes and discharge summary. Thank You. CLINICAL INDICATORS - SIGNS / SYMPTOMS / LABS / RESULTS AND LOCATION IN MR EVENT NOTE 08/15: "PT HYPOXIC IN 70s" RISKS: POSSIBLE ALLERGIC REACTION TO AUGMENTIN OR SULFA (EVENT NOTE 08/15) TREATMENT: CODE GREEN (08/15) MONITORING IN IMCU SUPPLEMENTAL OXYGEN PER NONREBREATHER MASK / NASAL CANNULA DUONEBS (08/15-PRESENT) IV BENADRYL (08/16) IV SOLUMEDROL (08/16) NOW DOSE LASIX DURING CODE GREEN (NURSE NOTE 08/16) PORTABLE CHEST XRAY (PER CODE GREEN RECORD) [employer] Acute Respiratory Failure: ABG pH < 7.35 or > 7.45; Decreased oxygen saturation (<90% room air or < 95% on oxygen); PCO2 > 50 mm Hg; PO2 < 60 mm Hg; Labored or rapid respirations ARDS: Dx Criteria [[place] ARDS]: Respiratory symptoms within one week of a known clinical insult (e.g. shock, infection, surgery, trauma) Bilateral opacities in CXR/Chest CT not due to CHF or fluid (This form is maintained as a part of the permanent medical record) 2014 [email or web address]. All Rights Reserved [email or web address] Office: [phone] [facility]
[2019-08-16 15:31] LABS: Vancomycin, Trough 18.9 ug/mL
--- NOTE | 2019-08-16 17:01 | EKG ---
Test Reason : Blood Pressure : / mmHG Vent. Rate : 096 BPM Atrial Rate : 096 BPM P-R Int : 122 ms QRS Dur : 080 ms QT Int : 416 ms P-R-T Axes : 036 010 030 degrees QTc Int : 525 ms Normal sinus rhythm ST depression, consider subendocardial injury Nonspecific T wave abnormality Abnormal ECG No previous ECGs available Confirmed by DR. Edwina SELF ([id number]) on 08/16/2019 5:00:36 PM Referred By: ELMA Confirmed By:DR. Edwina SELF
--- NOTE | 2019-08-16 18:08 | PDOC.HOSPP ---
- Subjective Encounter Date: 08/16/19 Encounter Time: 08:40 Subjective: Pt seen for followup re: acute hypoxic respiratory failure. Feels better today. No fevers or chills. - Objective Vital Signs & Weight: Vital Signs (12 hours) Temp Pulse Resp BP Pulse Ox 08/16/19 15:50 99.2 F 08/16/19 12:32 97.4 F L 08/16/19 11:09 69 19 98 08/16/19 10:05 75 123/63 08/16/19 08:00 99 08/16/19 07:38 97.4 F L 08/16/19 07:37 63 18 99 Weight Admit Weight 218 lb 4 oz Weight 218 lb 4 oz Most Recent Monitor Data Heart Rate from ECG 76 NIBP 129/66 NIBP BP-Mean 87 Respiration from ECG 18 SpO2 100 I&O: 08/15/19 08/16/19 08/17/19 06:59 06:59 06:59 Intake Total 1650 1000 1658 Output Total 1900 Balance 1650 -900 1658 Result Diagrams: 08/14/19 12:36 08/15/19 21:58 Additional Labs: Accuchecks 08/16/19 08/16/19 08/16/19 17:45 10:17 06:34 POC Glucose 167 H 238 H 189 H 08/15/19 08/15/19 08/15/19 21:58 20:19 17:20 POC Glucose 123 H 131 H 128 H Labs and MARs reviewed by me EKG Reviewed by me: Yes (Tele: NSR) Hospitalist ROS - Review of Systems Cardiovascular: denies: chest pain, palpitations, orthopnea, paroxysmal noc. dyspnea, edema, light headedness Gastrointestinal: denies: nausea, vomiting, abdominal pain, diarrhea, constipation, melena, hematochezia - Medication Medications: Active Medications Generic Name Dose Route Start Last Admin Trade Name Freq PRN Reason Stop Dose Admin Hydrocodone Bitart/Acetaminophen 1 tab 08/12/19 23:58 08/15/19 20:24 [place] 5/325 PO 1 tab Q4H PRN Administration Moderate Pain (4-6) Albuterol/Ipratropium 3 ml 08/15/19 22:30 08/16/19 14:31 Duoneb NEB 3 ml [id number] FAUSTO Administration Diphenhydramine HCl 25 mg 08/16/19 04:00 08/16/19 17:27 Benadryl IVP 25 mg 0400,1000,1600,2200 FAUSTO Administration Enoxaparin Sodium 40 mg 08/13/19 09:00 08/16/19 10:04 Lovenox SC 40 mg 0900 FAUSTO Administration Famotidine 20 mg 08/13/19 09:00 08/16/19 10:04 Pepcid PO 20 mg BID FAUSTO Administration Famotidine 20 mg 08/16/19 09:00 08/16/19 10:06 Pepcid SLOW IVP Not Given BID FAUSTO Vancomycin HCl 1 gm/ Device 200 mls @ 200 mls/hr 08/15/19 23:59 08/16/19 17: 36 IVPB 200 mls 0800,1600,2359 FAUSTO Administration Meropenem 1 gm/ Device 50 mls @ 100 mls/hr 08/16/19 06:00 08/16/19 14:12 IVPB 50 mls Q8HR FAUSTO Administration Lisinopril 5 mg 08/13/19 09:00 08/16/19 10:05 Zestril PO 5 mg DAILY FAUSTO Administration Metformin HCl 1,000 mg 08/16/19 08:00 08/16/19 17:27 Glucophage PO 1,000 mg BID-WM FAUSTO Administration Methylprednisolone Sodium Succinate 40 mg 08/16/19 04:00 08/16/19 17:31 Solu-Medrol IVP 40 mg 0400,1000,1600,2200 FAUSTO Administration Morphine Sulfate 4 mg 08/12/19 23:58 08/13/19 23:27 Morphine SLOW IVP 4 mg Q4H PRN Administration Severe Pain (7-10) Sodium Chloride 10 ml 08/13/19 09:00 08/16/19 10:07 Flush - Normal Saline IVF 10 ml Q12HR FAUSTO Administration - Exam General Appearance: NAD Eye: anicteric sclera ENT: moist mucosa Neck: supple Heart: RRR, no rubs Respiratory: CTAB, no wheezes Gastrointestinal: soft, non-tender Extremities: no edema Psychiatric: normal affect, normal behavior Hosp A/P (1) Acute respiratory failure with hypoxia Code(s): J96.01 - ACUTE RESPIRATORY FAILURE WITH HYPOXIA Status: Acute Plan: secondary to drug reaction; not present on admission (2) Cellulitis of scrotum Code(s): N49.2 - INFLAMMATORY DISORDERS OF SCROTUM Status: Acute (3) DM2 (diabetes mellitus, type 2) Status: Chronic (4) HTN (hypertension) Code(s): I10 - ESSENTIAL (PRIMARY) HYPERTENSION Status: Chronic (5) GERD (gastroesophageal reflux disease) Code(s): K21.9 - GASTRO-ESOPHAGEAL REFLUX DISEASE WITHOUT ESOPHAGITIS Status: Chronic (6) Sepsis Code(s): A41.9 - SEPSIS, UNSPECIFIED ORGANISM Status: Resolved Plan: due to scrotal cellulitis, present on admission, now resolved. - Plan Pt switched back to IV antibiotics after allergic reation yesterday to either bactrim or Augmentin. He reports using amoxicillin in the past without any problems. ID consult pending. HTN controlled. GERD stable. Transfer to medical floor.
--- NOTE | 2019-08-16 22:12 | CON ---
DATE OF CONSULTATION: 08/16/2019 REASON FOR CONSULTATION: Scrotal abscess. HISTORY OF PRESENT ILLNESS: This is a 53-year-old history of type 2 diabetes with prior cutaneous abscesses in other parts of his body in the past, most recent one was a few months ago in the left thigh skin site treated with Augmentin or amoxicillin with improvement. Now, he developed inflammatory process in the skin of the left side of his scrotum. He was admitted and placed on broad-spectrum antimicrobial coverage. Unfortunately, cultures from the site were not processed. I do not know what happened to the sample but is not is listed as having been obtained, but the patient is sure that it may have been lost. During the transition phase towards an oral regimen, he developed signs and symptoms that indicated a hypersensitivity reaction, potentially due to Bactrim and therefore, he had to be transferred to the [facility] after a brief code green intervention. Currently, he is feeling much better. Denies headaches, visual symptoms, sore throat, odynophagia, or dysphagia. No cough or sputum production. No chest pain. No dyspnea. No abdominal pain. The scrotal area is less tender. No neurological symptoms. PAST MEDICAL HISTORY: Type 2 diabetes, cutaneous abscesses in the skin of the body in other areas, hypertension, dyslipidemia, atopic dermatitis, GERD, tonsillectomy. ALLERGIES: POTENTIALLY BACTRIM, POSSIBLY AMOXICILLIN WITH ANAPHYLACTIC TYPE OF REACTION. CURRENT MEDICATIONS: 1. Meropenem. 2. Vancomycin. FAMILY HISTORY: Noncontributory. SOCIAL HISTORY: Right now, he is in correction at [facility]. No history of smoking. PHYSICAL EXAMINATION: VITAL SIGNS: T-max 103 just recently, BP 116/64, pulse 69, respirations 19, O2 saturation 98%. SKIN: Shows scrotal abscess, which is quite small at the moment, much improved compared with the picture that is available in the record. It is located in the left side of the scrotum and measures about 1.5 cm with a thin rim of erythema. The central opening with kind of yellowish base is moderately tender. The testicular structure itself does not appear to be involved and this is exclusively a cutaneous process. Peripheral IV access does not have Lopez catheter. No lymphadenopathy. HEENT: Noncontributory. NECK: Supple. LUNGS: Symmetric. Clear breath sounds. HEART: S1 and S2. Regular rate. No S3 or S4. ABDOMEN: Soft, not distended or tender. EXTREMITIES: Normal including pulses. NEURO: Nonfocal. LABORATORY DATA: White cell count is 7.6, hemoglobin 10.9, platelets 274, 75% neutrophils. Creatinine 1.03 with AST 46, ALT 28, albumin 4.1. Urinalysis fairly normal. Microbiology again negative blood cultures and urine culture. No samples are available from the involved area. We have submitted today a sample to see if we can obtain some guidance in terms of microbiology to allow discharge planning on oral antimicrobials. ASSESSMENT: 1. Type 2 diabetes. 2. Recurring cutaneous abscesses. 3. Scrotal abscess, which has been improving, although patient developed over this reaction to probably sulfa drugs and that probably explains the latest elevation in his temperature, which occurred on the day of this event. The actual inflammatory process appears much improved, so I would go ahead and wait for the culture results. Hopefully tomorrow, we will be able to discharge him on oral antimicrobial therapy. It is likely that this represents staphylococcal infection either Methicillin-sensitive Staphylococcus aureus or methicillin-resistant Staphylococcus aureus in view of the history of recurring cutaneous abscesses. Clindamycin might be an option for discharge planning. Job ID: [id number]
[2019-08-17] MEDS: diphenhydrAMINE 50 MG/ML VIAL IVP SCH ×4 (04:16→23:16)
[2019-08-17] MEDS: methylPREDNISolone Sod Succ 40 MG VIAL IVP SCH ×4 (04:16→23:16)
[2019-08-17] MEDS: MEROPENEM 1 GM/50 ML 1 GM in Premix Bag 1 BAG IVPB SCH ×3 (04:17→23:54)
[2019-08-17] MEDS: Famotidine/PF 20 mg/2ml Vial SLOW IVP SCH (08:05)
[2019-08-17] MEDS: Famotidine 20 MG TAB PO SCH ×2 (08:11→19:49)
[2019-08-17] MEDS: Vancomycin HCl 1 GM in Premix Bag 1 BAG IVPB SCH ×2 (08:11→16:35)
[2019-08-17] MEDS: Enoxaparin Sodium 40 MG/0.4 ML SYRINGE SC SCH (08:11)
[2019-08-17] MEDS: Lisinopril 5 MG TAB PO SCH (08:12)
[2019-08-17] MEDS: metFORMIN 500 MG TAB PO SCH ×2 (08:12→16:36)
--- NOTE | 2019-08-17 14:18 | PDOC.HOSPP ---
- Subjective Encounter Date: 08/17/19 Encounter Time: 09:20 Subjective: Pt seen for followup re; scrotal cellulitis. Feels well, no complaints. - Objective Vital Signs & Weight: Vital Signs (12 hours) Temp Pulse Resp BP BP Pulse Ox 08/17/19 10:53 98.3 F 72 18 126/69 99 08/17/19 10:44 76 18 98 08/17/19 08:12 77 163/70 H 08/17/19 07:55 97.7 F 77 18 163/70 H 98 08/17/19 07:19 71 16 98 08/17/19 03:58 97.6 F 66 20 144/68 H 97 Weight Admit Weight 218 lb 4 oz Weight 218 lb 4 oz Most Recent Monitor Data Heart Rate from ECG 76 NIBP 129/66 NIBP BP-Mean 87 Respiration from ECG 18 SpO2 100 I&O: 08/16/19 08/17/19 08/18/19 06:59 06:59 06:59 Intake Total 1000 1658 Output Total 1900 Balance -900 1658 Result Diagrams: 08/14/19 12:36 08/15/19 21:58 Additional Labs: Accuchecks 08/17/19 08/17/19 08/16/19 10:54 04:00 19:39 POC Glucose 204 H 223 H 221 H 08/16/19 17:45 POC Glucose 167 H Labs and MARs reviewed by vt Hospitalist ROS - Review of Systems Respiratory: denies: cough, shortness of breath, pleuritic pain, wheezing Gastrointestinal: denies: nausea, vomiting, abdominal pain, diarrhea, constipation, melena, hematochezia, other Musculoskeletal: denies: neck pain, shoulder pain, arm pain, back pain, hand pain, leg pain, foot pain - Medication Medications: Active Medications Generic Name Dose Route Start Last Admin Trade Name Freq PRN Reason Stop Dose Admin Hydrocodone Bitart/Acetaminophen 1 tab 08/12/19 23:58 08/15/19 20:24 [place] 5/325 PO 1 tab Q4H PRN Administration Moderate Pain (4-6) Albuterol/Ipratropium 3 ml 08/15/19 22:30 08/17/19 10:44 Duoneb NEB 3 ml [id number] FAUSTO Administration Diphenhydramine HCl 25 mg 08/16/19 04:00 08/17/19 10:52 Benadryl IVP 25 mg 0400,1000,1600,2200 FAUSTO Administration Enoxaparin Sodium 40 mg 08/13/19 09:00 08/17/19 08:11 Lovenox SC 40 mg 0900 FAUSTO Administration Famotidine 20 mg 08/13/19 09:00 08/17/19 08:11 Pepcid PO 20 mg BID FAUSTO Administration Famotidine 20 mg 08/16/19 09:00 08/17/19 08:05 Pepcid SLOW IVP Not Given BID FAUSTO Vancomycin HCl 1 gm/ Device 200 mls @ 200 mls/hr 08/15/19 23:59 08/17/19 08: 11 IVPB 200 mls 0800,1600,2359 FAUSTO Administration Meropenem 1 gm/ Device 50 mls @ 100 mls/hr 08/16/19 06:00 08/17/19 13:56 IVPB 50 mls Q8HR FAUSTO Administration Lisinopril 5 mg 08/13/19 09:00 08/17/19 08:12 Zestril PO 5 mg DAILY FAUSTO Administration Metformin HCl 1,000 mg 08/16/19 08:00 08/17/19 08:12 Glucophage PO 1,000 mg BID-WM FAUSTO Administration Methylprednisolone Sodium Succinate 40 mg 08/16/19 04:00 08/17/19 10:53 Solu-Medrol IVP 40 mg 0400,1000,1600,2200 FAUSTO Administration Morphine Sulfate 4 mg 08/12/19 23:58 08/13/19 23:27 Morphine SLOW IVP 4 mg Q4H PRN Administration Severe Pain (7-10) Sodium Chloride 10 ml 08/13/19 09:00 08/17/19 08:13 Flush - Normal Saline IVF 10 ml Q12HR FAUSTO Administration - Exam General Appearance: NAD Eye: anicteric sclera ENT: moist mucosa Neck: supple Heart: RRR, no rubs Respiratory: CTAB Gastrointestinal: soft, non-tender Psychiatric: normal affect, normal behavior Hosp A/P (1) Cellulitis of scrotum Code(s): N49.2 - INFLAMMATORY DISORDERS OF SCROTUM Status: Acute (2) DM2 (diabetes mellitus, type 2) Status: Chronic (3) HTN (hypertension) Code(s): I10 - ESSENTIAL (PRIMARY) HYPERTENSION Status: Chronic (4) GERD (gastroesophageal reflux disease) Code(s): K21.9 - GASTRO-ESOPHAGEAL REFLUX DISEASE WITHOUT ESOPHAGITIS Status: Chronic (5) Sepsis Code(s): A41.9 - SEPSIS, UNSPECIFIED ORGANISM Status: Resolved (6) Acute respiratory failure with hypoxia Code(s): J96.01 - ACUTE RESPIRATORY FAILURE WITH HYPOXIA Status: Resolved - Plan Continue IV meropenem and vancomycin. Follow cultures. Appreciate ID service input. HTN controlled. GERD stable.
[2019-08-17 15:32] LABS: Vancomycin, Trough 15.5 ug/mL
[2019-08-18] MEDS: Vancomycin HCl 1 GM in Premix Bag 1 BAG IVPB SCH ×2 (00:26→10:24)
[2019-08-18] MEDS: diphenhydrAMINE 50 MG/ML VIAL IVP SCH ×3 (03:57→17:07)
[2019-08-18] MEDS: methylPREDNISolone Sod Succ 40 MG VIAL IVP SCH ×3 (04:02→17:07)
[2019-08-18] MEDS: MEROPENEM 1 GM/50 ML 1 GM in Premix Bag 1 BAG IVPB SCH (05:22)
[2019-08-18] MEDS: Enoxaparin Sodium 40 MG/0.4 ML SYRINGE SC SCH (09:56)
[2019-08-18] MEDS: Lisinopril 5 MG TAB PO SCH (09:56)
[2019-08-18] MEDS: Famotidine 20 MG TAB PO SCH (09:56)
[2019-08-18] MEDS: metFORMIN 500 MG TAB PO SCH (09:56)
[2019-08-18 11:53] VITALS: BP 138/68; TEMP 97.8
[2019-08-18] MEDS ORDERED: Clindamycin 150 MG CAP PO SCH (14:00)
--- NOTE | 2019-08-18 14:00 | DIS ---
DATE OF ADMISSION: 08/12/2019 DATE OF DISCHARGE: 08/18/2019 PRIMARY CARE PROVIDER: Unknown. DISCHARGE DIAGNOSES: 1. Scrotal cellulitis. 2. Acute hypoxic respiratory failure. 3. Allergic drug reaction. CONDITION OF THE PATIENT ON THE DAY OF DISCHARGE: Stable. I assessed Mr. Mosher on the day of discharge. He denies any chest pain or shortness of breath. Vital signs are stable. S1 and S2 are heard, regular. Lungs are clear to auscultation bilaterally. CONSULTATIONS DURING THIS HOSPITALIZATION: 1. Urology, Dr. Gonzales. 2. Infectious Diseases, Dr. Bruce. DISCHARGE MEDICATIONS: 1. Clindamycin 300 mg three times a day for 2 weeks. 2. Aspirin 81 mg daily. 3. Lisinopril 5 mg daily. 4. Metformin 1000 mg two times a day. HOSPITAL COURSE: Mr. Mosher is a pleasant 53-year-old gentleman, who was admitted to [facility] on August 18, 2019 for a scrotal cellulitis. There was also questionable small abscess. He was seen by Urology Service. He was started on intravenous antibiotics and improved. On August 15, he was switched to Bactrim and Augmentin. That day, he had an allergic reaction resulting in acute hypoxic respiratory failure. He was transferred to [facility] for close observation. He improved clinically. He was seen by Infectious Diseases Service. Wound cultures taken on August 16, 2019 are growing Staphylococcus aureus. He is advised to follow up with primary care provider for final wound culture report. Preliminary blood cultures done on August 15 have shown no growth. He is advised to follow up with primary care provider for those reports as well. He is being switched to clindamycin. He has been cleared for discharge by consultants. [facility] the hospital. Many thanks for allowing me to participate in your patient's care. Please feel free to contact me with any questions or concerns. DISCHARGE DESTINATION: [place] [facility]. FOLLOWUP: Postacute care followup with primary care provider in 3 days. ACTIVITY: As tolerated. DIET: Diabetic diet. TIME SPENT: Total amount of time spent coordinating this discharge, 32 minutes. Job ID: [id number]
--- NOTE | 2019-08-18 15:50 | PRG ---
DATE OF SERVICE: 08/17/2019 SUBJECTIVE: The patient states he is feeling a lot better. His pain has reduced quite considerably. He did have a severe allergic reaction to presumably Bactrim, although he did take Bactrim and amoxicillin. He states he has used penicillins and amoxicillin in the past without issues. He has recovered from this problem and is currently on different antibiotics per Dr. Bruce. OBJECTIVE: VITAL SIGNS: Temperature 97.9, pulse 85, respirations 16, blood pressure 128/78, and saturation 95% on room air. GENERAL: No apparent distress, communicative and alert. CARDIOVASCULAR: Regular rate and rhythm. ABDOMEN: Soft, nontender, and nondistended. Positive bowel sounds. GENITOURINARY: Edema and erythema has markedly decreased. The scrotum almost appears normal. There is a minimal amount of induration left in the left inguinal region. There was still some firmness and purulent drainage from the I and D site. This has been cultured by Dr. Bruce. EXTREMITIES: No edema. LABORATORY EVALUATION: There are no new labs to review except bacterial culture, which is growing Staphylococcus aureus as a preliminary. ASSESSMENT AND PLAN: A 53-year-old white male with perineal cellulitis, which is currently responding to antibiotic therapy. Dr. Bruce is recommending a new antibiotic regimen since he was not able to tolerate the previous regimen including Bactrim. There is significant improvement in his infection. From my standpoint, there is no surgical need in this patient as he has shown significant improvement on antimicrobial therapy alone. He has no evidence of Wilbert gangrene. I do not think my service is required anymore. I will sign off on this case. Please re-consult if there are any further questions or issues. Job ID: [id number]
--- NOTE | 2019-08-18 16:29 | PRG ---
DATE OF SERVICE: 08/18/2019 SUBJECTIVE: Mr. Mosher is status quo, he is actually getting better. No diarrhea. No respiratory symptoms. Vital signs are normal. There is further improvement in inflammatory changes in the scrotal area. The white cell count is down to 7.6, hemoglobin 10.9. Creatinine 1.03. Microbiology with Staphylococcus aureus. We do not have yet susceptibility results. ASSESSMENT AND DISCUSSION: Recurring cutaneous abscesses, scrotal abscess secondary to Staphylococcus aureus, pending susceptibility identification, with verified reaction to one of the antimicrobials administered, either ampicillin or Bactrim. The patient will be transitioned to clindamycin for discharge planning. Need to verify the susceptibility of the organism when it is resulted tomorrow, to communicate with the unit where it comes from, but I think clindamycin has a high chance of being successful in this case. Any ways, most of those infections, once there is a proper drainage, they tend to resolve even without antimicrobial therapy. Job ID: [id number]
== END 2019-08-18 16:59 | DRG 871 ==
LOC: ERS 17:33 → EEVIPCON 23:08 → T4-B 23:08 → SURG A 08-13 23:20 → IMCU/EMU 08-15 22:06 → T4-B 08-16 19:13
PROVIDERS: ADMIT Internal Medicine; ATTEND Internal Medicine
PROC: 0V95XZZ Drainage of Scrotum, External Approach (ICD-10-PCS; principal; 2019-08-14)
DX: A41.02 Sepsis due to Methicillin resistant Staphylococcus aureus (principal); J96.01 Acute respiratory failure with hypoxia; N49.2 Inflammatory disorders of scrotum; I10 Essential (primary) hypertension; E78.5 Hyperlipidemia, unspecified; K21.9 Gastro-esophageal reflux disease without esophagitis; E11.9 Type 2 diabetes mellitus without complications; T36.8X5A Adverse effect of other systemic antibiotics, initial encounter; T36.0X5A Adverse effect of penicillins, initial encounter; T36.1X5A Adverse effect of cephalosporins and other beta-lactam antibiotics, initial encounter; Z79.899 Other long term (current) drug therapy; Z79.84 Long term (current) use of oral hypoglycemic drugs; Z79.82 Long term (current) use of aspirin
CPT/HCPCS: 36415; 36416; 71045; 72193; 80048; 80053; 80202; 81003; 83605; 84484; 85025; 87040; 87070; 87077; 87086; 87186; 87205; 93005; 93010; 94640; 96365; 96367; 96375; 96376; J1200; J1650; J1940; J2185; J2270; J2543; J2920; J3370; J3490; J7050; J7620; Q9967